=== PATIENT | female | born 1955 | race Caucasian/White ===

== ENCOUNTER 2021-10-03 09:23 | Emergency (ER) | payer SELFPAY ==
--- NOTE | 2021-10-03 09:33 | EDM.PDOC ---
ED HPI GENERAL MEDICAL PROBLEM - General Chief Complaint: ENT Problem Stated Complaint: CONSTANT NOSE BLEED Time Seen by Provider: 10/03/21 09:33 Source of Information: Reports: Patient, RN, RN Notes Reviewed History Limitations: Reports: No Limitations - History of Present Illness INITIAL COMMENTS - FREE TEXT/NARRATIVE: Pt presents to ER with c/o recurrent nose bleeds since 09/29/21. Pt states only the right nostril has had bleeding. Denies pain, fever, or injury. No Hx of HTN. No past Hx of nose bleeds. Pt states that the nose bleeds begin with a trickle down the back of her throat, so she thinks the bleeds are from far up the back or her nose. Currently in the ER there is no active bleeding. Pt does not take Aspirin or blood thinners. Pt states she called clinic to be seen and get an ENT referral, but was told to go to the ER. Onset: Sudden Duration: Recurring, Resolved Prior to Arrival Location: Reports: Other (nose) Severity: Moderate Improves with: Reports: None Worsens with: Reports: None Associated Symptoms: Reports: No Other Symptoms - Related Data Allergies Allergy/AdvReac Type Severity Reaction Status Date / Time No Known Allergies Allergy Verified 10/03/21 09:36 Home Meds: Home Meds Simvastatin 10 mg PO BEDTIME 10/03/21 [History] Past Medical History Cardiovascular History: Reports: High Cholesterol Social & Family History - Family History Family Medical History: No Pertinent Family History - Living Situation & Occupation Living situation: Reports: , with Spouse ED ROS ENT - Review of Systems Review Of Systems: Comprehensive ROS is negative, except as noted in HPI. ED EXAM, ENT - Physical Exam Exam: See Below Exam Limited By: No Limitations General Appearance: Alert, WD/WN, No Apparent Distress Eye Exam: Bilateral Eye: Normal Inspection Ears: Normal External Exam, Hearing Grossly Normal Nose: Normal Inspection, Dried Blood (Small amt. of dried blood in Rt nares, no active bleeding, no site of recent bleeding visible on exam.). No: Nasal Discharge, Nasal Swelling, Nasal Tenderness, Septal Deformity, Septal Hematoma, Active Bleeding Mouth/Throat: Normal Inspection, Normal Gums, Normal Lips, Normal Oropharynx, Normal Teeth Head: Atraumatic, Normocephalic Neck: Normal Inspection, Supple, Non-Tender, Full Range of Motion. No: Lymphadenopathy (L), Lymphadenopathy (R) Respiratory/Chest: No Respiratory Distress Cardiovascular: Regular Rate, Rhythm Neurological: Alert, Oriented, CN II-XII Intact, No Motor/Sensory Deficits Psychiatric: Normal Mood Skin: Warm, Dry, Intact, Normal Color, No Rash. No: Ecchymosis, Jaundice, Petechiae Course - Vital Signs Last Recorded V/S: Last Vital Signs Temp 97.9 F 10/03/21 09:28 Pulse 68 10/03/21 09:28 Resp 16 10/03/21 09:28 BP 210/79 H 10/03/21 09:28 Pulse Ox 97 10/03/21 09:28 Pt BP rechecked: 155/82 - Orders/Labs/Meds Meds: Medications Discontinued Medications Generic Name Dose Route Start Last Admin Trade Name Joni PRN Reason Stop Dose Admin Lidocaine/Epinephrine 20 ml 10/03/21 09:56 Lidocaine 1% With Epinephrine 1:100,000 20 Ml Mdv .XX 10/03/21 09:57 ONETIME ONE Oxymetazoline HCl 30 ml 10/03/21 09:55 Oxymetazoline 0.05% Nasal [place] 30 Ml Bottle TAYLOR 10/03/21 09:56 ONETIME ONE Departure - Departure Time of Disposition: 09:56 Disposition: Home, Self-Care 01 Condition: Good Clinical Impression: Epistaxis - Discharge Information *PRESCRIPTION DRUG MONITORING PROGRAM REVIEWED*: Not Applicable *COPY OF PRESCRIPTION DRUG MONITORING REPORT IN PATIENT APOLONIA: Not Applicable Instructions: Nosebleed, Adult Forms: ED Department Discharge Additional Instructions: Oxymetazoline Nasal [place]: Use 2 large sprays into both nostrils at first sign of nosebleed, then pinch firm pressure to nose for 15 to 30 minutes, and apply an ice pack to the back of you neck. Return to ER if the bleeding does not stop within 30 minutes. Follow up with your clinic provider or Ear/Nose/Throat specialist at the first available appointment. Monitor your blood pressure at home twice a day for 10 to 15 days, then follow up in clinic with the home blood pressure readings, and your home blood pressure monitor device. Sepsis Event Note (ED) - Focused Exam Vital Signs: Vital Signs Temp Pulse Resp BP Pulse Ox 10/03/21 09:28 97.9 F 68 16 210/79 H 97
[2021-10-03] MEDS ORDERED: Oxymetazoline 0.05% Nasal Spray 30 ML Bottle NAS ONE (09:55)
[2021-10-03] MEDS ORDERED: Lidocaine 1% with EPINEPHrine 1:100,000 20 ML MDV ONE (09:56)
== END 2021-10-03 10:07 | disposition home or self-care (01) ==
LOC: DL.ED 09:23
DX: R04.0 Epistaxis (principal); E78.00 Pure hypercholesterolemia, unspecified; Z79.899 Other long term (current) drug therapy
CPT/HCPCS: 99283; A9270